=== PATIENT | female | born 1965 | race Caucasian/White ===

== ENCOUNTER → 2016-12-14 | Outpatient (CLI) | payer BC ==
[~2016-12-14] VITALS: Ht 172.7 cm; Wt 72.6 kg
[~2016-12-14] MED LIST: CLARITIN,ALAVAR10 MG PO; CLARITIN10 M3 PO; FINACEA 15% GEL50 GM TP; KENLAOG,ARISTOC60 ML TP; OMEGA-31000 M1 PO; OSTERA TABLET1 EACH PO; RESTASIS 01 DROP/0.4 BOTH EYES; RESTASIS MULTI5.5 ML BOTH EYES; TYLENOL REGULA325 MG PO
== END | disposition home or self-care (01) ==
LOC: AMB 11:17
PROC: 0DJD8ZZ Inspection of Lower Intestinal Tract, Via Natural or Artificial Opening Endoscopic (ICD-10-PCS; principal; 2016-12-14)
DX: Z12.11 Encounter for screening for malignant neoplasm of colon (principal); K64.4 Residual hemorrhoidal skin tags; K64.8 Other hemorrhoids; K62.89 Other specified diseases of anus and rectum